=== PATIENT | male | born 1960 | race Caucasian/White ===

== ENCOUNTER 2023-12-08 17:40 | Emergency (ER) | payer BC ==
[~2023-12-08] VITALS: Ht 190.5 cm; Wt 121.8 kg
== END 2023-12-08 20:37 | disposition home or self-care (01) ==
LOC: ER 17:41
DX: S90.32XA Contusion of left foot, initial encounter (principal); R41.0 Disorientation, unspecified; X58.XXXA Exposure to other specified factors, initial encounter; Y93.89 Activity, other specified; Y92.89 Other specified places as the place of occurrence of the external cause; Y99.8 Other external cause status
CPT/HCPCS: 73630; 73700; 99284; L4360